=== PATIENT | female | born 1945 | race Caucasian/White ===

== ENCOUNTER → 2021-05-12 | Outpatient (REF) | payer MEDICARE ==
[2021-05-12 18:37] LABS: CREATININE, URINE 31.6 MG/DL; MALB URINE SIEMENS 5.4 MG/L
== END ==
LOC: M LAB REF 17:24
PROVIDERS: ATTEND Internal Medicine Endocrinology, Diabetes & Metabolism
DX: E11.65 Type 2 diabetes mellitus with hyperglycemia (principal)